=== PATIENT | female | born 1985 | race Caucasian/White ===

== ENCOUNTER 2018-12-09 06:42 | Inpatient (IN) | payer BC ==
[2018-12-09] VITALS (15 sets, daily range): BP systolic 112–133; BP diastolic 53–84; PULSE 62–95; TEMP 96.8–98.4
[~2018-12-09] VITALS: Ht 165.1 cm; Wt 84.5 kg
[2018-12-09 09:43] LABS: BASO % 0.2 % (0.0-2.0); EOS # 0.1 (0.0-0.7); EOS % 0.7 % (0-4.0); GRAN # 6.4 (1.4-6.5); GRAN % 71.5 % (42.2-75.2); HEMOGLOBIN 12.5 g/dl (12.5-16.0); LYMPH # 1.6 (1.2-3.4); MEAN CELL VOLUME 89 fl (80.0-100.0); MEAN CORPUSCULAR HEMOGLOBIN 29 pg (27.0-31.0); MEAN CORPUSCULAR HGB CONC 33 g/dl (33.0-37.0); MEAN PLATELET VOLUME 11.3 fl (7.4-10.4); MONO # 0.8 (0.1-0.6); MONO % 9.2 % (1.7-9.3); PLATELET COUNT 202 K/mm3 (130-400); RED BLOOD COUNT 4.29 M/mm3 (4.10-5.30)
--- NOTE | 2018-12-09 09:44 | NUR ---
PATIENT ADMITTED FOR REPEAT C SECTION. ASSESSMENT COMPLETED. VS WNL. CONSENTS SIGNED. IV STARTED IN LEFT WRIST AND LR HUNG. EFM ON FHR 120 BABY VERY ACTIVE. NO CONTRACTIONS ON MONITOR OR FELT
--- NOTE | 2018-12-09 14:28 | NUR ---
1430 patient complains of feeling shakey. vital signs wnl. fundus firm, bleeding minimal. warm blanket applied and lights dimmed at this time.
--- NOTE | 2018-12-09 14:32 | NUR ---
see all recovery vital signs under vital signs intervention
[2018-12-10 02:00] VITALS: BP 128/70; PULSE 76; TEMP 98.4
[2018-12-10 07:30] VITALS: BP 112/75; PULSE 68; TEMP 97.8
[2018-12-10] MEDS ORDERED: IBU800 M1 PO (08:45)
[2018-12-10] MEDS ORDERED: PERCOCET 325 MG1 TA2 PO (08:45)
--- NOTE | 2018-12-10 09:59 | NUR ---
Initial visit; Parents thanked Reel Man for offering congratulations and God's blessings for the of their son and for offering a [place] for his and life.
[2018-12-10 12:30] VITALS: BP 119/63; PULSE 72; TEMP 97.8
[2018-12-10 16:00] VITALS: BP 123/67; PULSE 71; TEMP 98.1
[2018-12-10 21:30] VITALS: BP 109/59; PULSE 65; TEMP 98.1
[2018-12-11 08:36] VITALS: BP 120/69; PULSE 73; TEMP 98.6
[2018-12-11 15:47] VITALS: BP 118/73; PULSE 76; TEMP 98.6
[2018-12-11 21:05] VITALS: BP 122/64; PULSE 88; TEMP 98.5
[2018-12-12 07:00] VITALS: BP 119/73; PULSE 78; TEMP 98
--- NOTE | 2018-12-12 09:13 | NUR ---
Follow-up visit; Mom thanked Corporate Controller for looking in on her again and wishing her God's blessings.
--- NOTE | 2018-12-12 13:00 | NUR ---
Discharge instrutions given, pt verbalizes understanding. No further questions noted. Bands matched and hugs tag removed.
== END 2018-12-12 13:30 | disposition home or self-care (01) | DRG 788 ==
LOC: LDR 06:42 → OB 08:57
PROVIDERS: ADMIT Student in an Organized Health Care Education/Training Program
PROC: 10D00Z1 Extraction of Products of Conception, Low, Open Approach (ICD-10-PCS; principal; 2018-12-09)
DX: O34.211 Maternal care for low transverse scar from previous cesarean delivery (principal); O99.62 Diseases of the digestive system complicating childbirth; K21.9 Gastro-esophageal reflux disease without esophagitis; O69.1XX0 Labor and delivery complicated by cord around neck, with compression, not applicable or unspecified; O99.214 Obesity complicating childbirth; Z3A.40 40 weeks gestation of pregnancy; Z37.0 Single live birth; Z86.14 Personal history of Methicillin resistant Staphylococcus aureus infection; Z23 Encounter for immunization
CPT/HCPCS: J0690; J1885; J2175; J2370; J2405; J2791; J3010; J7120